=== PATIENT | female | born 1970 | race Caucasian/White ===

== ENCOUNTER 2020-02-24 13:25 | Emergency (ER) | payer OTHER, SELFPAY ==
[2020-02-24 13:47] VITALS: BP 121/82; PULSE 74; RESP 16; TEMP 36.4; O2SAT 99; BMI 31.0
--- NOTE | 2020-02-24 13:51 | XR_ITS ---
EXAMINATION: XR ANKLE, LEFT XR ANKLE, RIGHT CLINICAL INFORMATION: Pain COMPARISON: 06/04/2019 TECHNIQUE: 3 views of each ankle FINDINGS: Left ankle: There is fixation hardware in place in the tibia. Healed fractures of the distal tibial and fibular diaphyses. Hardware is intact. No acute fracture or dislocation. The ankle mortise is congruent. No ankle joint effusion. The soft tissues are unremarkable. Right ankle: No fracture or dislocation. Mild degenerative change along the ankle mortise with minimal spurring at the medial and lateral malleoli. Lucency along the lateral aspect of the talar dome. This is similar to previous. The ankle mortise is congruent. The soft tissues are unremarkable. No joint effusion. XR/XR ankle RT min 3V IMPRESSION: No acute abnormality of either ankle. Intact hardware at the left tibia. Mild degenerative change along the right ankle mortise.
--- NOTE | 2020-02-24 13:52 | XR_ITS ---
EXAMINATION: XR ANKLE, LEFT XR ANKLE, RIGHT CLINICAL INFORMATION: Pain COMPARISON: 06/04/2019 TECHNIQUE: 3 views of each ankle FINDINGS: Left ankle: There is fixation hardware in place in the tibia. Healed fractures of the distal tibial and fibular diaphyses. Hardware is intact. No acute fracture or dislocation. The ankle mortise is congruent. No ankle joint effusion. The soft tissues are unremarkable. Right ankle: No fracture or dislocation. Mild degenerative change along the ankle mortise with minimal spurring at the medial and lateral malleoli. Lucency along the lateral aspect of the talar dome. This is similar to previous. The ankle mortise is congruent. The soft tissues are unremarkable. No joint effusion. XR/XR ankle LT min 3V IMPRESSION: No acute abnormality of either ankle. Intact hardware at the left tibia. Mild degenerative change along the right ankle mortise.
--- NOTE | 2020-02-24 14:51 | ED.LOWEXIN ---
HPI - Extremity Injury (Lower) General Chief Complaint: Extremity Injury, Lower Stated Complaint: foot & ankle pain Time Seen by Provider: 02/24/20 13:51 History of Present Illness HPI Narrative: Patient complains of pain in both ankles that is been going on for several months worsening over the past month, she had a surgical repair of a fracture in the left ankle many years ago which has slowly increased in pain and she has developed pain in the right ankle over many months with no new injuries Pain is mild Related Data Home Medications Medication Instructions Recorded Confirmed atorvastatin 20 mg tablet 20 mg PO DAILY 01/23/20 01/23/20 baclofen 20 mg tablet 20 mg PO Q8H tab 01/23/20 01/23/20 benztropine 0.5 mg tablet 0.5 mg PO .daily at bedtime tab 01/23/20 01/23/20 diclofenac sodium 75 mg 75 mg PO BID PRN 01/23/20 01/23/20 tablet,delayed release levothyroxine 125 mcg tablet 125 mcg PO DAILY 01/23/20 01/23/20 metformin 500 mg tablet 500 mg PO DAILY 01/23/20 01/23/20 omeprazole 20 mg capsule,delayed 20 mg PO DAILY 01/23/20 01/23/20 release oxybutynin chloride 15 mg 15 mg PO DAILY 01/23/20 01/23/20 tablet,extended release 24 hr sertraline 100 mg tablet 100 mg PO DAILY 01/23/20 01/23/20 Previous Rx's Medication Instructions Recorded divalproex 500 mg tablet,delayed 500 mg PO BID #30 tab 01/23/20 release hydroxyzine HCl 50 mg tablet 50 mg PO BEDTIME 30 Days #30 tab 01/23/20 risperidone 2 mg tablet 2 mg PO DAILY 30 Days #30 tab 01/23/20 hydroxyzine HCl 25 mg tablet 25 mg PO Q8H PRN #90 tab 02/08/20 Allergies Allergy/AdvReac Type Severity Reaction Status Date / Time No Known Allergies Allergy Verified 01/23/20 16:44 Review of Systems Review of Systems: No fever no chills no numbness no weakness no rash no calf pain no chest pain or shortness of breath Yes all other systems are reviewed and are negative PMFSH Past Medical History Source: nursing notes reviewed Medical History (Updated 02/24/20 @ 14:54 by FOREST Nielson) Lumbar spine scoliosis Surgical History History of goiter Family History Family History (Updated 01/20/20 @ 10:02 by RENETTA Sifuentes) Father Diabetes Hypertension Stroke Mother Hypertension Diabetes Social History Social History (Updated 01/23/20 @ 16:49 by Randal Lopez PA-C) Smoking Status: Current every day smoker Tobacco Type: Cigarette Cigarettes Per Day: 2 Advance Directives: No Advance Directives Information Provided: Yes Physical Exam Vital Signs: Vital Signs: Last Vital Signs Temp 97.5 F 02/24/20 13:47 Pulse 74 02/24/20 13:47 Resp 16 02/24/20 13:47 BP 121/82 02/24/20 13:47 Pulse Ox 99 02/24/20 13:47 Body Mass Index 31.0 General appearance no acute distress, comfortable, ambulates with a mild limp without assistance Head normocephalic atraumatic Neck is supple Respiratory no acute respiratory distress Extremities there is tenderness to both lateral and medial malleolus on both left and right sides there is mild ankle swelling of both the right and left ankles there is no redness no warmth no wounds, there is full range of motion in both left and right ankle, neurovascular intact distal, skin color is normal Skin no rashes Neuro no focal deficit sensation and motor are normal Course Reevaluation(s) Reevaluation #1: X-rays of left and right ankle were reviewed with no acute findings and patient is referred to orthopedist for follow-up Discharge Plan Discharge Clinical Impression: Ankle pain, chronic Qualifiers: Laterality: bilateral Qualified Code(s): M25.571 - Pain in right ankle and joints of right foot Patient Disposition: Home, Self-Care Additional Instructions: X-ray showed that the hardware in her left ankle is intact, no new injury was seen The right ankle x-ray showed arthritis Follow-up with orthopedic doctor for further evaluation Return any concerns Prescriptions: No Action hydroxyzine HCl 25 mg tablet 25 mg PO Q8H PRN (Reason: anxiety) Qty: 90 RF: 3 levothyroxine [Synthroid] 125 mcg tablet 125 mcg PO DAILY RF: 0 diclofenac sodium 75 mg tablet,delayed release (DR/EC) 75 mg PO BID PRNRF: 0 benztropine 0.5 mg tablet 0.5 mg PO .daily at bedtime RF: 0 sertraline 100 mg tablet 100 mg PO DAILY RF: 0 metformin 500 mg tablet 500 mg PO DAILY RF: 0 atorvastatin 20 mg tablet 20 mg PO DAILY RF: 0 omeprazole 20 mg capsule,delayed release(DR/EC) 20 mg PO DAILY RF: 0 oxybutynin chloride 15 mg tablet extended release 24hr 15 mg PO DAILY RF: 0 baclofen 20 mg tablet 20 mg PO Q8H RF: 0 divalproex 500 mg tablet,delayed release (DR/EC) 500 mg PO BID Qty: 30 RF: 2 risperidone 2 mg tablet 2 mg PO DAILY 30 Days Qty: 30 RF: 3 hydroxyzine HCl 50 mg tablet 50 mg PO BEDTIME 30 Days Qty: 30 RF: 1 Referrals: Martínez Shelton MD [Physician] - 2 days (Chronic pain in left and right ankles with arthritis) Interventions: ED Discharge Assessment Last Done: 02/24/20 15:00 Discharge Date/Time: 02/24/20 15:01
== END 2020-02-24 15:01 | disposition home or self-care (01) ==
PROVIDERS: Emergency Provider Emergency Medicine; PCP Physician Assistant
DX: S99.912A Unspecified injury of left ankle, initial encounter (principal); S99.911A Unspecified injury of right ankle, initial encounter; M25.571 Pain in right ankle and joints of right foot; M25.572 Pain in left ankle and joints of left foot; X58.XXXA Exposure to other specified factors, initial encounter; Y93.9 Activity, unspecified; Y92.9 Unspecified place or not applicable; Y99.9 Unspecified external cause status; F17.200 Nicotine dependence, unspecified, uncomplicated; Z71.6 Tobacco abuse counseling; Z79.899 Other long term (current) drug therapy
CPT/HCPCS: 73610; 99283

== ENCOUNTER 2020-03-30 08:46 | Outpatient (REF) | payer OTHER, SELFPAY ==
[2020-03-30 09:36] LABS: Alanine Aminotransferase 11 U/L (0-31); Albumin Level 4.4 g/dL (3.5-5.0); Alkaline Phosphatase 52 U/L (39-117); Anion Gap 14 (12-20); Aspartate Amino Transferase 13 U/L (5-31); Bilirubin Total 0.3 mg/dL (0.0-1.0); Blood Urea Nitrogen 13 mg/dL (9-16); Calcium 9.6 mg/dL (8.4-10.2); Carbon Dioxide 31 mmol/L (22-29); Chloride 100 mmol/L (96-108); Cholesterol 225 mg/dL; Estimated Glomerular Filt Rate 43; Glucose Fasting 154 mg/dL (60-99); HDL Cholesterol 36 mg/dL; LDL Cholesterol Calculated 110 mg/dl; Potassium 4.8 mmol/l (3.3-5.1); Sodium 140 mmol/L (135-145); Total Protein 8.1 g/dL (6.5-8.0); Triglycerides 396 mg/dL
[2020-03-30 10:01] LABS: TSH reflex Free T4 82.28 mIU/mL (0.32-4.0)
[2020-03-30 10:46] LABS: Free T4 (Free Thyroxine) 0.55 ng/dL (0.71-1.85)
== END 2020-03-30 08:47 | disposition home or self-care (01) ==
LOC: HO.LAB 08:46
PROVIDERS: Visit Provider Physician Assistant
DX: E03.9 Hypothyroidism, unspecified (principal)
CPT/HCPCS: 80053; 80061; 84439; 84443

== ENCOUNTER 2020-05-12 10:57 | Outpatient (REF) | payer OTHER, SELFPAY ==
[2020-05-12 11:40] LABS: Alanine Aminotransferase 12 U/L (0-31); Albumin Level 4.5 g/dL (3.5-5.0); Alkaline Phosphatase 43 U/L (39-117); Anion Gap 17 (12-20); Aspartate Amino Transferase 14 U/L (5-31); Bilirubin Total 0.4 mg/dL (0.0-1.0); Blood Urea Nitrogen 14 mg/dL (9-16); Calcium 9.1 mg/dL (8.4-10.2); Carbon Dioxide 25 mmol/L (22-29); Chloride 104 mmol/L (96-108); Cholesterol 235 mg/dL; Estimated Glomerular Filt Rate 38; Glucose Fasting 125 mg/dL (60-99); HDL Cholesterol 45 mg/dL; LDL Cholesterol Calculated 126 mg/dl; Potassium 4.7 mmol/L (3.3-5.1); Sodium 141 mmol/L (135-145); Total Protein 7.9 g/dL (6.5-8.0); Triglycerides 320 mg/dL
[2020-05-12 12:03] LABS: TSH reflex Free T4 21.86 uIU/mL (0.32-4.0)
[2020-05-12 12:35] LABS: Free T4 (Free Thyroxine) 0.85 ng/dL (0.71-1.85)
== END 2020-05-12 10:58 | disposition home or self-care (01) ==
LOC: HO.LAB 10:57
PROVIDERS: Visit Provider Physician Assistant
DX: E03.9 Hypothyroidism, unspecified (principal)
CPT/HCPCS: 36415; 80053; 80061; 84439; 84443

== ENCOUNTER 2020-06-07 06:40 | Outpatient (REF) | payer OTHER, SELFPAY ==
--- NOTE | ~2020-06-07 | XR_ITS ---
EXAMINATION: XR ANKLE, BILATERAL CLINICAL INFORMATION: Pain. COMPARISON: 02/24/2020 TECHNIQUE: Bilateral ankles each 3 views. FINDINGS: RIGHT ANKLE: Mild soft tissue swelling laterally. No acute fracture or dislocation. Similar-appearing subchondral lucency in the lateral talar dome. Mild spurring of the medial and lateral malleoli. Dorsal spurring of the proximal navicular. Ankle mortise is maintained. LEFT ANKLE: Redemonstrated is fixation hardware in the distal tibia. Old healed distal tibial and fibular fractures. Ankle mortise is maintained. No acute fracture is seen. No significant ankle joint effusion. XR/XR ankle LT min 3V IMPRESSION: 1. No acute findings in bilateral ankles. 2. Stable subchondral lucency in the right talar dome laterally. 3. Stable posttraumatic/postsurgical changes in the distal tibia and fibula.
--- NOTE | ~2020-06-07 | XR_ITS ---
EXAMINATION: XR ANKLE, BILATERAL CLINICAL INFORMATION: Pain. COMPARISON: 02/24/2020 TECHNIQUE: Bilateral ankles each 3 views. FINDINGS: RIGHT ANKLE: Mild soft tissue swelling laterally. No acute fracture or dislocation. Similar-appearing subchondral lucency in the lateral talar dome. Mild spurring of the medial and lateral malleoli. Dorsal spurring of the proximal navicular. Ankle mortise is maintained. LEFT ANKLE: Redemonstrated is fixation hardware in the distal tibia. Old healed distal tibial and fibular fractures. Ankle mortise is maintained. No acute fracture is seen. No significant ankle joint effusion. XR/XR ankle RT min 3V IMPRESSION: 1. No acute findings in bilateral ankles. 2. Stable subchondral lucency in the right talar dome laterally. 3. Stable posttraumatic/postsurgical changes in the distal tibia and fibula.
== END 2020-06-07 06:41 | disposition home or self-care (01) ==
LOC: HO.HOSX 06:40
PROVIDERS: Visit Provider Physician Assistant
DX: M25.572 Pain in left ankle and joints of left foot (principal); M25.571 Pain in right ankle and joints of right foot; F17.210 Nicotine dependence, cigarettes, uncomplicated
CPT/HCPCS: 73610; 99202

== ENCOUNTER → 2020-06-14 10:39 | Outpatient (BNVA) | payer OTHER, SELFPAY | PROVIDERS: PCP Physician Assistant; Visit Provider Family Medicine Adult Medicine | DX: M19.09 Primary osteoarthritis, other specified site (principal); F17.200 Nicotine dependence, unspecified, uncomplicated; Z79.899 Other long term (current) drug therapy; Z87.81 Personal history of (healed) traumatic fracture; Z71.6 Tobacco abuse counseling | CPT/HCPCS: 99202 ==